=== PATIENT | female | born 1940 | race African-American/Black ===

== ENCOUNTER 2018-02-19 19:42 | Inpatient (IN) | payer MEDICARE, MEDICAID ==
[~2018-02-19] VITALS: Ht 167.6 cm; Wt 89.8 kg
[2018-02-19] MEDS ORDERED: ALTEPLASE IV STA (19:58)
[2018-02-19] MEDS ORDERED: ALTEPLASE 100MG/VIAL IV STA (19:58)
[2018-02-19] MEDS ORDERED: LABETALOL 5MG/ML SYR 20 MG/4 ML SYRINGE IV ONE (20:00)
[2018-02-19 20:07] LABS: BASOPHILS % 1.2 % (0.0-2.0); EOSINOPHILS % 2.5 % (0.0-5.0); HEMATOCRIT. 38.1 % (36.0-48.0); HEMOGLOBIN. 12.6 g/dL (12.0-16.0); MEAN CORPUSCULAR HEMOGLOBIN 26.3 pg (28.0-32.0); MEAN CORPUSCULAR VOLUME 79.3 fL (81.0-99.0); MEAN PLATELET VOLUME 8.4 fl (7.4-10.4); MONOCYTES % 7.9 % (2.0-8.0); NEUTROPHILS % 64.4 % (40.0-76.0); PLATELET 336 x1000/uL (130-400)
[2018-02-19 20:11] LABS: CHLORIDE 102 mEq/L (98-107)
[2018-02-19 20:15] LABS: PARTIAL THROMBOPLASTIN TIME 24.7 sec (23.4-31.0); PROTHROMBIN TIME 10.1 sec (9.1-11.1)
[2018-02-19] MEDS ORDERED: CLONIDINE 0.2MG TABLET PO ONE (20:15)
[2018-02-19] MEDS ORDERED: ASPIRIN 325MG EC TABLET PO ONE (20:45)
[2018-02-19] MEDS ORDERED: IOHEXOL-350 100 ML BOTTLE ONE (21:40)
[2018-02-20] VITALS (7 sets, daily range): BP systolic 126–149; BP diastolic 49–64
[2018-02-20] MEDS ORDERED: TEMAZEPAM 15MG CAPSULE PO PRN (03:30)
[2018-02-20] MEDS ORDERED: ONDANSETRON HCL 4MG/2ML INJ IV PRN (03:30)
[2018-02-20] MEDS ORDERED: HYDRALAZINE 20MG/ML VIAL IV PRN (03:30)
[2018-02-20] MEDS ORDERED: DIPHENHYDRAMINE 50MG/ML VIAL IV PRN (03:30)
[2018-02-20] MEDS ORDERED: MAGNESIUM/ALUMINUM HYDROXIDE/SIMETHICONE 30ML UDC PO PRN (03:30)
[2018-02-20] MEDS ORDERED: MAGNESIUM HYDROXIDE 400MG/5ML 30ML UDC PO PRN (03:30)
[2018-02-20] MEDS ORDERED: DEXTROSE 50% WATER 50ML SYRINGE IV PRN (03:30)
[2018-02-20] MEDS: SODIUM CHLORIDE 0.9% INJ 3ML FLUSH IVF SCH ×3 (06:00→21:31)
[2018-02-20 07:04] LABS: *BARBITURATES SCREEN URINE NEGATIVE (NEGATIVE)
[2018-02-20 07:05] LABS: *AMPHETAMINES SCREEN URINE NEGATIVE (NEGATIVE); *BENZODIAZEPINES SCREEN URINE NEGATIVE (NEGATIVE); *COCAINE SCREEN URINE NEGATIVE (NEGATIVE)
[2018-02-20 07:06] LABS: CANNABINOID URINE SCREEN NEGATIVE (NEGATIVE); METHADONE URINE SCREEN NEGATIVE (NEGATIVE); OPIATES URINE SCREEN PRESUMTIVE POSITIVE (NEGATIVE); PHENCYCLIDINE URINE SCREEN NEGATIVE (NEGATIVE)
[2018-02-20] MEDS: BLOOD SUGAR DIAGNOSTIC STRIP TEST SCH ×4 (07:40→20:36)
[2018-02-20] MEDS: OMEPRAZOLE 20MG CAPSULE EXTENDED RELEASE PO SCH ×2 (08:02→21:26)
[2018-02-20] MEDS: INSULIN LISPRO 100 UNITS/ML SUBCUT SCH ×4 (08:10→21:27)
[2018-02-20] MEDS: AMLODIPINE 5MG TABLET PO SCH ×2 (08:54→21:26)
[2018-02-20] MEDS: ASPIRIN 325MG EC TABLET PO SCH (08:55)
[2018-02-20] MEDS: ENOXAPARIN 40MG/0.4ML SYR SUBCUT SCH (08:59)
[2018-02-20] MEDS ORDERED: ASPI-1158 MT (14:33)
[2018-02-20] MEDS ORDERED: ATOR-2 MT (14:33)
[2018-02-20] MEDS ORDERED: LOSA1TAB37 MT (14:33)
[2018-02-20] MEDS ORDERED: CELE200C MT (14:33)
[2018-02-20] MEDS ORDERED: AMLO10TA80 MT (14:33)
[2018-02-20] MEDS ORDERED: GABA-531 MT (14:33)
[2018-02-20] MEDS ORDERED: METF850T2 MT (14:33)
[2018-02-20] MEDS: ACETAMINOPHEN 325MG TABLET PO PRN (18:04)
[2018-02-20] MEDS: ATORVASTATIN CALCIUM 40MG TABLET PO SCH (21:30)
[2018-02-20 21:57] LABS: T4 FREE 0.95 ng/dL (0.76-1.46)
[2018-02-21] VITALS: BP 139/58
[2018-02-21 04:00] VITALS: BP 134/62
[2018-02-21] MEDS: BLOOD SUGAR DIAGNOSTIC STRIP TEST SCH ×4 (05:51→20:55)
[2018-02-21] MEDS: SODIUM CHLORIDE 0.9% INJ 3ML FLUSH IVF SCH ×3 (06:07→22:00)
[2018-02-21 08:00] VITALS: BP 127/51
[2018-02-21] MEDS: INSULIN LISPRO 100 UNITS/ML SUBCUT SCH ×4 (08:10→20:56)
[2018-02-21] MEDS: GABAPENTIN 300MG CAPSULE PO SCH ×2 (09:35→17:36)
[2018-02-21] MEDS: ASPIRIN 325MG EC TABLET PO SCH (09:35)
[2018-02-21] MEDS: CELECOXIB 200MG CAPSULE PO SCH (09:35)
[2018-02-21] MEDS: DOCUSATE SODIUM 100MG CAPSULE PO SCH ×2 (09:35→17:36)
[2018-02-21] MEDS: METFORMIN HCL 850MG TABLET PO SCH (09:35)
[2018-02-21] MEDS: ENOXAPARIN 40MG/0.4ML SYR SUBCUT SCH (09:35)
[2018-02-21] MEDS: AMLODIPINE 5MG TABLET PO SCH ×2 (09:36→20:54)
[2018-02-21] MEDS: OMEPRAZOLE 20MG CAPSULE EXTENDED RELEASE PO SCH ×2 (09:49→20:54)
[2018-02-21 12:00] VITALS: BP 148/64
[2018-02-21 16:00] VITALS: BP 138/54
[2018-02-21 20:00] VITALS: BP 120/46
[2018-02-21] MEDS: ATORVASTATIN CALCIUM 40MG TABLET PO SCH (20:54)
[2018-02-22] VITALS: BP 148/58
[2018-02-22 04:00] VITALS: BP 123/53
[2018-02-22] MEDS: SODIUM CHLORIDE 0.9% INJ 3ML FLUSH IVF SCH ×2 (06:08→14:00)
[2018-02-22] MEDS: BLOOD SUGAR DIAGNOSTIC STRIP TEST SCH ×2 (06:54→13:29)
[2018-02-22 08:00] VITALS: BP 135/81
[2018-02-22] MEDS: INSULIN LISPRO 100 UNITS/ML SUBCUT SCH ×2 (08:10→13:53)
[2018-02-22] MEDS ORDERED: CLOPIDOGREL 75MG TABLET PO SCH (09:00)
[2018-02-22] MEDS: DOCUSATE SODIUM 100MG CAPSULE PO SCH ×2 (09:30→16:12)
[2018-02-22] MEDS: CELECOXIB 200MG CAPSULE PO SCH (09:30)
[2018-02-22] MEDS: OMEPRAZOLE 20MG CAPSULE EXTENDED RELEASE PO SCH (09:30)
[2018-02-22] MEDS: ENOXAPARIN 40MG/0.4ML SYR SUBCUT SCH (09:30)
[2018-02-22] MEDS: GABAPENTIN 300MG CAPSULE PO SCH ×2 (09:30→16:12)
[2018-02-22] MEDS: METFORMIN HCL 850MG TABLET PO SCH (09:31)
[2018-02-22] MEDS: AMLODIPINE 5MG TABLET PO SCH (09:31)
[2018-02-22] MEDS: ACETAMINOPHEN 325MG TABLET PO PRN (09:39)
[2018-02-22 12:00] VITALS: BP 119/52
[2018-02-22 15:40] VITALS: BP 148/72
[2018-02-22 16:00] VITALS: BP 148/72
[2018-02-22] MEDS ORDERED: FAMOTIDINE 20MG TABLET PO SCH (21:00)
== END 2018-02-22 17:35 | disposition home health service (06) | DRG 65 ==
LOC: ER 19:50 → EDBEDREQ 23:59 → ENRESERV 02-20 00:46 → 7WST 02-20 00:46
PROVIDERS: ADMIT Internal Medicine; ATTEND Internal Medicine
PROC: 4A00X4Z Measurement of Central Nervous Electrical Activity, External Approach (ICD-10-PCS; principal; 2018-02-21)
DX: I63.511 Cerebral infarction due to unspecified occlusion or stenosis of right middle cerebral artery (principal); G81.94 Hemiplegia, unspecified affecting left nondominant side; I10 Essential (primary) hypertension; E11.65 Type 2 diabetes mellitus with hyperglycemia; E78.5 Hyperlipidemia, unspecified; E78.00 Pure hypercholesterolemia, unspecified; M19.90 Unspecified osteoarthritis, unspecified site; R29.810 Facial weakness; I65.22 Occlusion and stenosis of left carotid artery; E04.2 Nontoxic multinodular goiter; Z96.652 Presence of left artificial knee joint; Z60.2 Problems related to living alone; Z82.49 Family history of ischemic heart disease and other diseases of the circulatory system; Z83.3 Family history of diabetes mellitus; Z98.891 History of uterine scar from previous surgery
CPT/HCPCS: 36415; 70450; 70496; 70498; 70551; 71045; 80053; 80061; 80305; 82962; 83036; 84439; 84443; 84484; 85025; 85610; 85730; 86850; 86900; 93005; 93880; 93970; 97116; 97162; 97166; 97530; 99291; J1650; J1815; J2997; J3490; Q9967

== ENCOUNTER 2024-05-29 12:21 | Emergency (ER) | payer MEDICARE, MEDICAID ==
[~2024-05-29] VITALS: Ht 165.1 cm; Wt 81.0 kg
[~2024-05-29 12:21] MED LIST: AMLO10TA80 MT; ATOR-2 MT; CEL200 MT; GABA-1180 MT; LOSA1TAB37 MT; METF-415 MT
[2024-05-29 12:38] VITALS: O2SAT 97
[2024-05-29 13:12] LABS: BASOPHILS % 0.5 % (0.0-2.0); DIFFERENTIAL COMMENT 0; HEMATOCRIT. 36.4 % (36.0-48.0); LYMPHOCYTES % 15.1 % (20.0-50.0); MEAN CORPUSCULAR HEMOGLOBIN 25.9 pg (28.0-32.0); MEAN CORPUSCULAR HGB CONC 32.9 g/dL (31.0-37.0); MEAN CORPUSCULAR VOLUME 78.7 fL (81.0-99.0); MEAN PLATELET VOLUME 7.7 fl (7.4-10.4); MONOCYTES % 9.7 % (2.0-8.0); NEUTROPHILS % 73.7 % (40.0-76.0); PLATELET 450 x1000/uL (130-400); RED BLOOD CELL COUNT 4.63 mill/uL (4.2-5.4); RED CELL DISTRIBUTION WIDTH 16.5 % (11.6-14.6); WHITE BLOOD COUNT 13.6 x1000/uL (4.5-11.0)
[2024-05-29 13:20] LABS: CHLORIDE 105 mEq/L (98-107)
[2024-05-29 13:21] LABS: SODIUM 139 mEq/L (136-145)
[2024-05-29 13:22] LABS: CALCIUM 9.4 mg/dL (8.7-10.4); CARBON DIOXIDE 26 mEq/L (21-32)
[2024-05-29 13:27] LABS: CREATININE 1.3 mg/dL (0.6-1.0); GLUCOSE 165 mg/dL (70-105); UREA NITROGEN BLOOD 17 mg/dL (9-23)
[2024-05-29 13:30] LABS: TROPONIN I HIGH SENSITIVITY < 4 ng/L (3.0-34)
[2024-05-29] MEDS: ACETAMINOPHEN 325MG TABLET PO ONE (16:24)
[2024-05-29 16:25] VITALS: BP 144/87; PULSE 88; RESP 16; TEMP 36.83628; O2SAT 97
== END 2024-05-29 16:30 | disposition home or self-care (01) ==
LOC: ER 12:21
DX: B34.9 Viral infection, unspecified (principal); I10 Essential (primary) hypertension; E11.9 Type 2 diabetes mellitus without complications; Z20.822 Contact with and (suspected) exposure to COVID-19; Z79.899 Other long term (current) drug therapy
CPT/HCPCS: 36415; 71045; 80048; 84484; 85025; 87426; 87804; 93005; 99285